=== PATIENT | female | born 1990 | race Caucasian/White ===

== ENCOUNTER 2017-03-05 17:24 | Inpatient (IN) | payer BC ==
[2017-03-05] MEDS ORDERED: Acetaminophen 325 MG Tab PO PRN (18:02)
[2017-03-05] MEDS ORDERED: Lidocaine 1% 30 ML SDV INJECT PRN (18:02)
[2017-03-05] MEDS ORDERED: Ondansetron 4 MG/2 ML SDV IV PRN (18:02)
[2017-03-05] MEDS ORDERED: Lactated Ringers 500 ML IV ONE (18:02)
[2017-03-05] MEDS ORDERED: Carboprost Tromethamine 250 MCG/1 ML Amp IM PRN (18:02)
[2017-03-05] MEDS ORDERED: Sodium Chloride 0.9% 10 ML Syringe FLUSH PRN (18:02)
[2017-03-05] MEDS ORDERED: Methylergonovine 0.2 MG/1 ML Amp IM PRN (18:02)
[2017-03-05] MEDS ORDERED: Misoprostol 400 MCG (4 X 100 MCG TAB) RECTAL PRN (18:02)
[2017-03-05] MEDS: Lactated Ringers 1,000 ML IV SCH ×2 (18:15→19:28)
[2017-03-05] MEDS ORDERED: Oxytocin/Normal Saline 30 UNIT/500 ML BAG IV SCH (18:15)
--- NOTE | 2017-03-05 18:35 | PCM.LDHP ---
L&D History of Present Illness - General Date of Service: 03/06/17 Admit Problem/Dx: Patient Status Order with Admit Dx/Problem 03/05/17 18:02 Patient Status [ADT] Routine Admission Diagnosis/Problem Admission Diagnosis/Problem Normal labor - Related Data Allergies/Adverse Reactions: Allergies Allergy/AdvReac Type Severity Reaction Status Date / Time sulfamethoxazole Allergy Indigestion Verified 05/04/16 00:59 [From Bactrim] trimethoprim [From Bactrim] Allergy Indigestion Verified 05/04/16 00:59 Home Medications: Home Meds Acetaminophen [Tylenol Extra Strength] 1,000 mg PO Q8H PRN #0 tablet 04/01/16 [ Rx] Docusate Sodium [Colace] 100 mg PO BID cap 04/01/16 [Rx] Ferrous Sulfate 325 mg PO BID #60 tablet 04/01/16 [Rx] Vit with Ca/FA/Iron [ Plus Iron] 1 each PO DAILY tablet [Rx] FLUoxetine HCl [Fluoxetine] 1 tab PO DAILY 05/04/16 [History] Past Medical History 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: Psychiatric History: Reports: Anxiety Endocrine/Metabolic History: Reports: Obesity/BMI 30+ - Past Surgical History HEENT Surgical History: Reports: Adenoidectomy, Tonsillectomy Social & Family History - Family History Family Medical History: Noncontributory - Tobacco Use Smoking Status *Q: Never Smoker Second Hand Smoke Exposure: No - Caffeine Use Caffeine Use: Reports: None - Recreational Drug Use Recreational Drug Use: No L&D Exam - Vital Signs Weight: 235 lb Orders Last 24hrs: Active Orders 24 hr Category Date Time Status Patient Status [ADT] Routine ADT 03/05/17 18:02 Active Communication Order [RC] ASDIRECTED Care 03/05/17 18:02 Active Heart Tones [RC] PER UNIT ROUTINE Care 03/05/17 18:02 Active Notify Provider Vital Signs OB [RC] ASDIRECTED Care 03/05/17 18:02 Active Notify Provider [RC] PRN Care 03/05/17 18:02 Active Pump Management, Intrathecal [RC] ASDIRECTED Care 03/05/17 18:02 Active Up ad Soniya [RC] ASDIRECTED Care 03/05/17 18:02 Active Vital Signs [RC] PER UNIT ROUTINE Care 03/05/17 18:02 Active Clear Liquid Diet [DIET] Diet 03/05/17 Dinner Active CBC W/O DIFF,HEMOGRAM [HEME] Routine Lab 03/05/17 18:02 Ordered Acetaminophen [Tylenol] Med 03/05/17 18:02 Active 650 mg PO Q4H PRN Carboprost Tromethamine [Hemabate DS] Med 03/05/17 18:02 Active 250 mcg IM ASDIRECTED PRN Lactated Ringers [Ringers, Lactated] 1,000 ml Med 03/05/17 18:15 Active IV ASDIRECTED Lactated Ringers [Ringers, Lactated] 500 ml Med 03/05/17 18:02 Active IV ONETIME Lidocaine 1% [Xylocaine-MPF 1%] Med 03/05/17 18:02 Active 10 ml INJECT ASDIRECTED PRN Methylergonovine [Methergine] Med 03/05/17 18:02 Active 0.2 mg IM ASDIRECTED PRN Misoprostol [Cytotec] Med 03/05/17 18:02 Active 800 mcg RECTAL ASDIRECTED PRN Ondansetron [Zofran] Med 03/05/17 18:02 Active 4 mg IV Q4H PRN Oxytocin/Normal Saline [Pitocin in NS 30 UNIT/500 ML] Med 03/05/17 18:15 Ordered 30 unit in 500 ml IV TITRATE Sodium Chloride 0.9% [Saline Flush] Med 03/05/17 18:02 Ordered 10 ml FLUSH ASDIRECTED PRN Saline Lock Insert [OM.PC] Routine Oth 03/05/17 18:02 Ordered Resuscitation Status Routine Resus Stat 03/05/17 18:02 Ordered Medication Orders Acetaminophen (Tylenol) 650 mg PO Q4H PRN PRN Reason: Pain (Mild 1-3) and fever Carboprost Tromethamine (Hemabate Ds) 250 mcg IM ASDIRECTED PRN PRN Reason: HEMORRHAGE Lactated Ringer's (Ringers, Lactated) 500 mls @ 500 mls/hr IV ONETIME ONE Stop: 03/05/17 19:01 Lactated Ringer's (Ringers, Lactated) 1,000 mls @ 125 mls/hr IV ASDIRECTED AMBREEN Oxytocin/Sodium Chloride (Pitocin In Ns 30 Unit/500 Ml) 30 unit in 500 mls @ 2 mls/hr IV TITRATE AMBREEN; 2 MUNITS/MIN PRN Reason: Protocol Lidocaine HCl (Xylocaine-Mpf 1%) 10 ml INJECT ASDIRECTED PRN PRN Reason: Perineal Repair Methylergonovine Maleate (Methergine) 0.2 mg IM ASDIRECTED PRN PRN Reason: Hemorrhage Misoprostol (Cytotec) 800 mcg RECTAL ASDIRECTED PRN PRN Reason: Hemorrhage Ondansetron HCl (Zofran) 4 mg IV Q4H PRN PRN Reason: Nausea/Vomiting Sodium Chloride (Saline Flush) 10 ml FLUSH ASDIRECTED PRN PRN Reason: Keep Vein Open
[2017-03-05] MEDS ORDERED: fentaNYL 100 MCG/2 ML SDV ONE (18:46)
--- NOTE | 2017-03-05 18:59 | PCM.SN ---
<Azalea Law - Last Filed: 03/05/17 19:01> - Free Text/Narrative Note: Labor and Delivery Admission H & P Admitting Physician: Dr. Jo Delvalle MD Personal Physician: Dr. Jo Delvalle MD Date: 03/05/2017 Subjective: C/C: contractions HPI: Gildardo Mcniel is a 26 y.o. at 39w6d who presents today with the complaint of regular contractions starting this afternoon. She has her membranes stripped yesterday and has had some bloody discharge since that time. No LOF. Baby is moving well. She denies headache, vision changes, SOB, chest pain, RUQ pain, or GI complaints. Labs: Maternal blood type O pos Antibody screen: negative Hepatitis B negative HIV negative Rubella: Immune RPR non reactive GC/Chlamydia negative GBS negative Glucose 28 weeks: 131 at 1 hr. care: good. complications: none OB History Para Term AB Living 2 1 1 0 0 1 SAB TAB Ectopic Multiple Live Births 0 0 0 0 1 Past Medical History: Diagnosis Date Adult situational stress disorder Treated with Prozac 10 mg for 6 months with good results. BMI 33.0-33.9,adult Ear piercing No tattoos, No IVDU, No transfusions Puberty Menarche age 11-13 Q30d, flow 4-5d Past Surgical History: Procedure Laterality Date SD LAP,CHOLECYSTECTOMY 05/22/2016 TONSILLECTOMY AND ADENOIDECTOMY Age 2-3 WISDOM/ BABY TEETH EXTRACTION Age 22 Allergies Allergen Reactions Bactrim Nausea And Vomiting - Intolerance Sulfamethoxazole Heartburn - Intolerance Trimethoprim Heartburn - Intolerance Social History Social History Marital status: Spouse name: Brian Number of children: 1 Years of education: 16 Occupational History MEDICAL ASSOCIATE [employer] Social History Main Topics Smoking status: Never Smoker Smokeless tobacco: Never Used Alcohol use 0.0 oz/week Comment: occasionally Drug use: No Sexual activity: Yes Partners: Male Social History Narrative Originally from [place], [place]. Lives in [place] in an apartment. 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. October 2012. *09/01/15 moved to [place] in 2013. Lives in a house with her , Brian. No pets. 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 Brian works at [employer]. They are expecting their first child. Brian's family history is overall unremarkable but there are twins on his father's side of the family.-alley worker 07/22/14 Has one son, Gurinder born 03/30/16. Expecting their second child. -alley worker Family History Problem Relation Age of Onset Diabetes Mother Diet controlled. Anxiety Disorder Mother Same stress disorder that Gildardo has. No Known Diseases Father No Known Diseases Brother Diabetes Maternal Aunt Diabetes Maternal Grandmother Heart Disease Paternal Grandfather unkn type Diabetes Paternal Grandfather Other Paternal Grandfather gallbladder disease, cholecystectomy. Uterine Cancer Maternal Aunt and Sarcoma Breast Cancer Maternal Aunt Gene testing was negative for Gildardo's mother Unknown to patient Maternal Grandfather Heart Defect Paternal Grandmother murmur Other Paternal Grandmother gallbladder disease, cholecystectomy. Cancer Paternal Uncle in his 20s from non-Hodgkin's lymphoma Defects Neg Hx Clotting Disorder Neg Hx Bleeding Prob Neg Hx Anesth Problems Neg Hx Cystic Fibrosis Neg Hx Seizures Neg Hx Multiple Births Neg Hx Review of Systems Constitutional: negative for chills and fevers HEENT: negative for vision changes, headache Respiratory: negative for cough and shortness of breath Cardiovascular: negative for chest pain, chest pressure/discomfort, lower extremity swelling, redness, or pain. Gastrointestinal: negative for epigastric pain, abdominal pain, change in bowel habits, nausea and vomiting Genitourinary: negative for dysuria, frequency and hematuria Integument/breast: negative for pruritus and rash Objective: General: alert, oriented, no acute distress vitals: BP: 126/86, P: 93, Temp: 98.4F Lungs: clear to auscultation bilaterally. No wheezing or rales Heart: regular rate and rhythm, no murmur, rub or gallop Abdomen: gravid, non-tender, non distended, bowel sounds present Extremities: no edema, no redness, no indurations FHT: 130 BPM, moderate variability, accelerations present, no decelerations [place]: contractions every 3 to 5 minutes. Presentation: Cephalic Cervix: Dilation: 7 cm Effacement: 90% Station: -1 Assessment: 26 year old female at 39w6d who presents for at 39w6d with active labor, GBS negative status. FHR: Category I Patient Active Problem List Diagnosis BMI 33.0-33.9,adult Adult situational stress disorder Encounter for supervision of normal in third trimester Short interval between pregnancies affecting in third trimester, antepartum Antepartum bleeding, second trimester UTI in , second trimester Heartburn during in third trimester Disorder of SI (sacroiliac) joint Carpal tunnel syndrome during Plan: Admit to L&D for expectant management of active labor in normal term . AROM when able. Anticipate . Desires intrathecal. The patient was staffed with Jo Delvalle MD. AZALEA LAW MD, PGY 3, Pager # [phone] [facility] Family Medicine Residency 03/05/2017 6:27 PM <Jo Hartman - Last Filed: 03/05/17 20:16> - Free Text/Narrative Note: Patient seen and examined. Agree with note as scribed on my behalf by Dr. Law. Patient reported cramping all morning, worse with activity and checked around 230pm and was 5cm and 90%. Shortly after that reports her contractions got stronger. -alley worker 03/05/172015.
--- NOTE | 2017-03-05 19:48 | PCM.PRNOTE ---
- Free Text/Narrative Note: Requested to provide analgesia to full term patient in severe pain. Upon entering the room, patient is lying on back complaining of severe abdominal pain and discomfort. Procedure was discussed with patient including adverse outcomes and expectations. Pt consented to analgesia, SAB/IT. Pt placed into a sitting position. Landmarks for SAB/IT were identified and marked. Back was prepped with betadine x3. A sterile, transparent, fenestrated drape was applied. Excess betadine was removed. Using 3 mL of a 1% lidocaine solution, a skin wheel was placed at the L3/L4 interspace. A 24 ga (4 inch) Pencan spinal needle was inserted until positive for CSF. First attempt was unsuccessful. Second attempt at the L4/L5 interspace was successful. Negative for heme or paresthesias. Injected fentanyl 20 mcg, sufentanil 10 mcg, and 11.25 mg of a 0.75% bupivacaine solution with an epi wash. Pt was placed left lateral position for approximately 20 minutes. There were zero complications or adverse outcomes. Will continue to monitor.
[2017-03-05] MEDS ORDERED: Benzocaine/Menthol 20%-0.5% Spray 56 GM Canister TOP PRN (22:13)
[2017-03-05] MEDS ORDERED: Simethicone 80 MG Tab.Chew PO PRN (22:13)
[2017-03-05] MEDS ORDERED: Famotidine 20 MG Tab PO PRN (22:13)
[2017-03-05] MEDS ORDERED: Hydrocortisone 2.5% Crm 30 GM Tube TOP PRN (22:13)
--- NOTE | 2017-03-05 23:20 | PCM.DEL ---
<Azalea Corral - Last Filed: 03/05/17 23:40> L & D Note - General Info Date of Service: 03/05/17 Mother's Due Date: 03/06/17 - Delivery Note Labor: Augmented by ARM, Augmented by Oxytocin Delivery Outcome: Livebirth Delivery Method: Spontaneous Vaginal Delivery-Single Infant Delivery Mode: Spontaneous Presentation: Left Occiput Anterior (TERRELL) Nuchal Cord: None Prep: Povidone-Iodine (Betadine Anesthesia Type: Intrathecal Amniotic Fluid Description: Meconium Stained Laceration: 2nd Degree, Perineal Suture type: Vicryl Suture size: 3-0 Placenta: Intact, Spontaneous Cord: 3 Vessels Estimated Blood Loss: 250 Resuscitation Needed: Yes : Bulb Syringe, Stimulated, Warmed, Warmer Used Provider: Jo Delvalle Score 1 min: 8 Score 5 min: 9 Second Stage Interventions: Reports: Encouragement Given, Laboring Down Delivery Comments (Free Text/Narrative):: Gildardo Mcneil is a 26 year old female G2 now P2 at 39w 6d who presented with spontaneous onset of labor on 03/05/16 at 1530. Category 1 tracing on admission. She was dilated to 7 cm on admission. She progressed to complete dilation by 2105, with augmentation of pitocin. Artificial rupture of membranes at 8 cm with thin meconium stained fluid. She began pushing at about 5 after laboring down for 45 mins. Delivered a liveborn male from the TERRELL position, after pushing for about 15 mins, over 2nd degree perineal laceration in the midline. Vigorous with cry following stimulation. Placenta delivered spontaneously intact with a 3 vessel cord. IV Pitocin was started shortly after delivery of placenta. EBL 250 mL. 2nd degree perineal laceration repaired with 3-0 Vicryl suture. Hemostasis confirmed. Mother and doing well. - Patient Data Vitals - Most Recent: Last Vital Signs Temp 98.4 F 03/05/17 17:31 Pulse 81 03/05/17 19:00 Resp 16 03/05/17 19:00 BP 114/65 03/05/17 19:00 Pulse Ox 97 03/05/17 19:00 Weight - Most Recent: 106.594 kg Lab Results Last 24 Hours: Laboratory Results - last 24 hr 03/05/17 Range/Units 06:15 WBC 19.4 H (5.0-10.0) 10^3/uL RBC 4.11 L (4.2-5.4) 10^6/uL Hgb 12.0 D (12.0-16.0) g/dL Hct 36.4 L (37.0-47.0) % MCV 88.6 D (80-100) fL MCH 29.2 (27.0-34.0) pg MCHC 33.0 (33.0-35.0) g/dL Plt Count 238 D (150-450) 10^3/uL Med Orders - Current: Current Medications Acetaminophen (Tylenol) 650 mg PO Q4H PRN PRN Reason: Pain (Mild 1-3) and fever Benzocaine/Menthol (Dermoplast Pain Relief [place]) 0 gm TOP Q4H PRN PRN Reason: Perineal comfort measures Carboprost Tromethamine (Hemabate Ds) 250 mcg IM ASDIRECTED PRN PRN Reason: HEMORRHAGE Docusate Sodium (Colace) 100 mg PO BID PRN PRN Reason: Constipation Famotidine (Pepcid) 20 mg PO BID PRN PRN Reason: Heartburn Hydrocortisone (Hydrocortisone 2.5% Crm) 0 gm TOP Q4H PRN PRN Reason: Hemorrhoids Lactated Ringer's (Ringers, Lactated) 1,000 mls @ 125 mls/hr IV ASDIRECTED AMBREEN Last Admin: 03/05/17 19:28 Dose: 125 mls/hr Oxytocin/Sodium Chloride (Pitocin In Ns 30 Unit/500 Ml) 30 unit in 500 mls @ 2 mls/hr IV TITRATE AMBREEN; 2 MUNITS/MIN PRN Reason: Protocol Last Admin: 03/05/17 20:10 Dose: 2 munits/min, 2 mls/hr Ibuprofen (Motrin) 800 mg PO Q8H PRN PRN Reason: Mild Pain or Fever Lidocaine HCl (Xylocaine-Mpf 1%) 10 ml INJECT ASDIRECTED PRN PRN Reason: Perineal Repair Methylergonovine Maleate (Methergine) 0.2 mg IM ASDIRECTED PRN PRN Reason: Hemorrhage Misoprostol (Cytotec) 800 mcg RECTAL ASDIRECTED PRN PRN Reason: Hemorrhage Ondansetron HCl (Zofran) 4 mg IV Q4H PRN PRN Reason: Nausea/Vomiting Last Admin: 03/05/17 18:34 Dose: 4 mg Prenat Multivit/[place]/Iron/Folic Ac ( Plus Iron) 1 each PO DAILY AMBREEN Simethicone (Simethicone) 80 mg PO Q4H PRN PRN Reason: Gas Sodium Chloride (Saline Flush) 10 ml FLUSH ASDIRECTED PRN PRN Reason: Keep Vein Open Discontinued Medications Fentanyl (Sublimaze) Confirm Administered Dose 100 mcg .ROUTE .STK-MED ONE Stop: 03/05/17 18:47 Lactated Ringer's (Ringers, Lactated) 500 mls @ 500 mls/hr IV ONETIME ONE Stop: 03/05/17 19:01 Last Admin: 03/05/17 18:49 Dose: 500 mls/hr Sufentanil Citrate (Sufenta) Confirm Administered Dose 50 mcg .ROUTE .STK-MED ONE Stop: 03/05/17 18:48 - Problem List & Annotations (1) (normal spontaneous vaginal delivery) SNOMED Code(s): 89398967 Code(s): O80 - ENCOUNTER FOR FULL-TERM UNCOMPLICATED DELIVERY Status: Acute Priority: High Current Visit: Yes Onset Date: ~03/05/17 - Problem List Review Problem List Initiated/Reviewed/Updated: Yes - My Orders Last 24 Hours: Up ad Soniya [RC] ASDIRECTED Acetaminophen [Tylenol] 650 mg PO Q4H PRN Ondansetron [Zofran] 4 mg IV Q4H PRN Sodium Chloride 0.9% [Saline Flush] 10 ml FLUSH ASDIRECTED PRN Saline Lock Insert [OM.PC] Routine Notify Provider Vital Signs OB [RC] ASDIRECTED Vital Signs [RC] PFP Consult to Die Equipment Operator [CONS] Routine Benzocaine/Menthol [Dermoplast Pain Relief [place]] See Dose Instructions TOP Q4H PRN Docusate Sodium [Colace] 100 mg PO BID PRN Famotidine [Pepcid] 20 mg PO BID PRN Hydrocortisone [Hydrocortisone 2.5% Crm] See Dose Instructions TOP Q4H PRN Ibuprofen [Motrin] 800 mg PO Q8H PRN Simethicone 80 mg PO Q4H PRN Assess Lochia [WOMSER] Per Unit Routine Assess Uterine Involution [WOMSER] Per Unit Routine Breast Pump [WOMSER] Per Unit Routine Ice Therapy [OM.PC] Per Unit Routine Perineal Care [OM.PC] Per Unit Routine Sitz Bath [OM.PC] Per Unit Routine Vit with Ca/FA/Iron [ Plus Iron] 1 each PO DAILY Regular Diet [DIET] - Assessment Assessment:: (normal spontaneous vaginal delivery) Normal term (delivered) Second trimester bleeding in current Heartburn during in 3rd trimester Short interval between pregnancies Adult situational stress disorder - Plan Plan:: Routine cares including pain management and monitoring for excess uterine bleeding or infections. vitamin for breast feeding status Prozac for stress disorder PRN Pepcid for heartburn <Jo Hartman - Last Filed: 03/06/17 11:17> - Patient Data Vitals - Most Recent: Last Vital Signs Temp 98.2 F 03/06/17 08:00 Pulse 110 H 03/06/17 08:00 Resp 16 03/06/17 08:00 BP 120/64 03/06/17 08:00 Pulse Ox 98 03/06/17 08:00 Lab Results Last 24 Hours: Laboratory Results - last 24 hr 03/05/17 Range/Units 06:15 WBC 19.4 H (5.0-10.0) 10^3/uL RBC 4.11 L (4.2-5.4) 10^6/uL Hgb 12.0 D (12.0-16.0) g/dL Hct 36.4 L (37.0-47.0) % MCV 88.6 D (80-100) fL MCH 29.2 (27.0-34.0) pg MCHC 33.0 (33.0-35.0) g/dL Plt Count 238 D (150-450) 10^3/uL Med Orders - Current: Current Medications Acetaminophen (Tylenol) 650 mg PO Q4H PRN PRN Reason: Pain (Mild 1-3) and fever Benzocaine/Menthol (Dermoplast Pain Relief [place]) 0 gm TOP Q4H PRN PRN Reason: Perineal comfort measures Last Admin: 03/06/17 05:09 Dose: 1 gram Docusate Sodium (Colace) 100 mg PO BID PRN PRN Reason: Constipation Last Admin: 03/06/17 08:47 Dose: 100 mg Famotidine (Pepcid) 20 mg PO BID PRN PRN Reason: Heartburn Hydrocortisone (Hydrocortisone 2.5% Crm) 0 gm TOP Q4H PRN PRN Reason: Hemorrhoids Oxytocin/Sodium Chloride (Pitocin In Ns 30 Unit/500 Ml) 30 unit in 500 mls @ 2 mls/hr IV TITRATE AMBREEN; 2 MUNITS/MIN PRN Reason: Protocol Last Titration: 03/06/17 00:30 Dose: Infused Ibuprofen (Motrin) 800 mg PO Q8H PRN PRN Reason: Mild Pain or Fever Last Admin: 03/06/17 05:08 Dose: 800 mg Ondansetron HCl (Zofran) 4 mg IV Q4H PRN PRN Reason: Nausea/Vomiting Last Admin: 03/05/17 18:34 Dose: 4 mg Prenat Multivit/[place]/Iron/Folic Ac ( Plus Iron) 1 each PO DAILY AMBREEN Last Admin: 03/06/17 08:47 Dose: 1 each Simethicone (Simethicone) 80 mg PO Q4H PRN PRN Reason: Gas Sodium Chloride (Saline Flush) 10 ml FLUSH ASDIRECTED PRN PRN Reason: Keep Vein Open Discontinued Medications Carboprost Tromethamine (Hemabate Ds) 250 mcg IM ASDIRECTED PRN PRN Reason: HEMORRHAGE Fentanyl (Sublimaze) Confirm Administered Dose 100 mcg .ROUTE .STK-MED ONE Stop: 03/05/17 18:47 Last Admin: 03/06/17 00:36 Dose: Not Given Lactated Ringer's (Ringers, Lactated) 500 mls @ 500 mls/hr IV ONETIME ONE Stop: 03/05/17 19:01 Last Admin: 03/05/17 18:49 Dose: 500 mls/hr Lactated Ringer's (Ringers, Lactated) 1,000 mls @ 125 mls/hr IV ASDIRECTED AMBREEN Last Admin: 03/05/17 19:28 Dose: 125 mls/hr Lidocaine HCl (Xylocaine-Mpf 1%) 10 ml INJECT ASDIRECTED PRN PRN Reason: Perineal Repair Methylergonovine Maleate (Methergine) 0.2 mg IM ASDIRECTED PRN PRN Reason: Hemorrhage Misoprostol (Cytotec) 800 mcg RECTAL ASDIRECTED PRN PRN Reason: Hemorrhage Sufentanil Citrate (Sufenta) Confirm Administered Dose 50 mcg .ROUTE .STK-MED ONE Stop: 03/05/17 18:48 Last Admin: 03/06/17 00:37 Dose: Not Given - Plan Plan:: Procedure performed under my direct supervision. Agree with note as described on my behalf by Dr. Corral. -[facility] 03/06/17 1117.
[2017-03-06] MEDS: Ibuprofen 800 MG Tab PO PRN ×2 (05:08→20:38)
--- NOTE | 2017-03-06 08:10 | PCM.SN ---
<Azalea Law - Last Filed: 03/06/17 08:01> - Free Text/Narrative Note: Obstetrics Progress Note Post Day Number 1 Patient: Gildardo Mcneil Admit Date: 03/05/17 Today's Date: 03/06/17 Subjective: Gildardo is ambulating, voiding, tolerating regular diet all without difficulty. She reports her lochia is mild in degree . She is . She is up and ambulating well, tolerating PO intake and using the bathroom, good bowel sounds and passing gas, no bowel movement at this time. She has no complaints. Objective: Vitals reviewed Blood pressure 127/76, pulse 94, weight (!) 234 lb (106.1 kg). General: healthy, alert, no distress, cooperative, smiling Lungs: clear to auscultation bilaterally Heart: regular rate and rhythm, S1, S2 normal, no murmur, click, rub or gallop Abdomen: soft, non-tender; bowel sounds normal; no masses, no organomegaly Uterus is Firm, nontender at 1 cm above the umbilicus. Lower extremities are nontender and have pitting edema. Skin: is warm and dry, well perfused no visible lesions Lab Results: Hgb 12 Platelets 238 RPR: non reactive Rubella: Immune GBS: negative Hbs: negative Assessment/Plan: Patient is stable and comfortable, no acute distress. She is day number one status post normal spontaneous vaginal delivery. No signs of anemia as her last Hb was 12 and she is completely asymptomatic. Plan will be to encourage ambulation. Advance diet as tolerated. Saline lock IV with good oral intake. Continue with advancing routine post cares. Plan for discharge tomorrow. AZALEA LAW MD, PGY 3, Pager # [phone] [facility] Family Medicine Residency <Jo Hartman - Last Filed: 03/06/17 11:18> - Free Text/Narrative Note: Patient seen and examined with Dr. Law. Agree with her note as described on my behalf. -[facility] 03/06/17 6551
[2017-03-06] MEDS: Prenatal Multivitamin with Calcium/Folic Acid/Iron Tab PO SCH (08:47)
[2017-03-06] MEDS: Docusate Sodium 100 MG Cap PO PRN ×2 (08:47→20:39)
--- NOTE | 2017-03-07 07:50 | PCM.SN ---
<Azalea Law - Last Filed: 03/07/17 07:46> - Free Text/Narrative Note: Obstetrics Progress Note Post Day Number 2 Patient: Gildardo Mcneil Admit Date: 03/05/17 Today's Date: 03/07/2017 Subjective: Gildardo Mcneil 26 y.o. now who is day number two status post normal spontaneous vaginal delivery. She is ambulating, voiding, tolerating regular diet all without difficulty. She reports her lochia is minimal in degree . Baby is doing well, mother is . She has no complaints. Objective: Vitals: BP: 119/80, P 63, RR 16 General: healthy, alert, no distress, cooperative, smiling Lungs: clear to auscultation bilaterally Heart: regular rate and rhythm, S1, S2 normal, no murmur, click, rub or gallop Abdomen: soft, non-tender; bowel sounds normal; Uterus is Firm, nontender at 2 cm below the umbilicus. Lower extremities are nontender and have pitting edema. Skin: is warm and dry, well perfused no visible lesions Lab Results: RPR: non reactive Rubella: Immune GBS: negative Hbs: negative Assessment/Plan: Patient is stable and comfortable doing well. No acute distress. 26 y.o. now who is day number two status post normal spontaneous vaginal delivery. Probable discharge later today, discharge instructions will be reviewed by nursing staff. She should have a checkup which will be scheduled for six weeks to eight weeks from now. AZALEA LAW MD, PGY 3, Pager # [phone] [facility] Family Medicine Residency <Jo Hartman - Last Filed: 03/07/17 11:00> - Free Text/Narrative Note: Patient seen and examined. Agree with Dr. Law's noted as scribed on my behalf. -fast food attendant 03/07/17 1100.
--- NOTE | 2017-03-07 08:37 | PCM.DCSUM1 ---
<Azalea Corral - Last Filed: 03/07/17 08:37> Discharge Summary - Hospital Course Free Text/Narrative:: Gildardo Mcneil is a 26 year old female now at 39w 6d who presented with spontaneous onset of labor on 03/05/16 at 1530. Category 1 tracing on admission. She was dilated to 7 cm on admission. She progressed to complete dilation by 2106 (~6hrs labor), with augmentation of pitocin. Artificial rupture of membranes at 8 cm with thin meconium stained fluid. She began pushing at about 2115 after laboring down for 45 mins. Delivered a liveborn male from the TERRELL position, after pushing for about 15 mins, over 2nd degree perineal laceration in the midline. Vigorous infant with cry following stimulation. Placenta delivered spontaneously intact with a 3 vessel cord. IV Pitocin was started shortly after delivery of placenta. EBL 250 mL. 2nd degree perineal laceration repaired with 3-0 Vicryl suture. Hemostasis confirmed. Mother and doing well. - Discharge Data Discharge Date: 03/07/17 Discharge Disposition: Home, Self-Care 01 Condition: Good - Discharge Diagnosis/Problem(s) (1) (normal spontaneous vaginal delivery) SNOMED Code(s): 32357316 ICD Code: O80 - ENCOUNTER FOR FULL-TERM UNCOMPLICATED DELIVERY Status: Acute Priority: High Current Visit: Yes Onset Date: ~03/05/17 - Patient Summary/Data Consults: Consultations 03/05/17 22:13 Consult to Airframe Technical Officer [CONS] Routine - Patient Instructions Diet: Regular Diet as Tolerated Activity: No Lifting Over 25 Pounds, No Strenuous Activities (pelvic rest for 6 weeks) Driving: May Drive Today Showering/Bathing: May Shower Notify Provider of: Fever, Increased Pain, Swelling and Redness, Drainage, Nausea and/or Vomiting Other/Special Instructions: routine post vaginal delivery for mother. wear DOMITILA hoses daily for lower extremity edema - Discharge Plan Home Medications: Home Meds Acetaminophen [Tylenol Extra Strength] 1,000 mg PO Q8H PRN #0 tablet 04/01/16 [ Rx] Docusate Sodium [Colace] 100 mg PO BID cap 04/01/16 [Rx] Ferrous Sulfate 325 mg PO BID #60 tablet 04/01/16 [Rx] Vit with Ca/FA/Iron [ Plus Iron] 1 each PO DAILY tablet [Rx] FLUoxetine HCl [Fluoxetine] 1 tab PO DAILY 05/04/16 [History] Patient Handouts: Vaginal Delivery, Care of a Perineal Tear Referrals: Jo Hartman MD [Primary Care Provider] - (Please schedule your own 6 week appointment. ) - Patient Data Vitals - Most Recent: Last Vital Signs Temp 97.8 F 03/06/17 20:00 Pulse 63 03/06/17 20:00 Resp 16 03/06/17 20:00 BP 119/80 03/06/17 20:00 Pulse Ox 98 03/06/17 08:00 Weight - Most Recent: 106.594 kg Med Orders - Current: Current Medications Acetaminophen (Tylenol) 650 mg PO Q4H PRN PRN Reason: Pain (Mild 1-3) and fever Benzocaine/Menthol (Dermoplast Pain Relief [place]) 0 gm TOP Q4H PRN PRN Reason: Perineal comfort measures Last Admin: 03/06/17 05:09 Dose: 1 gram Docusate Sodium (Colace) 100 mg PO BID PRN PRN Reason: Constipation Last Admin: 03/06/17 20:39 Dose: 100 mg Famotidine (Pepcid) 20 mg PO BID PRN PRN Reason: Heartburn Hydrocortisone (Hydrocortisone 2.5% Crm) 0 gm TOP Q4H PRN PRN Reason: Hemorrhoids Oxytocin/Sodium Chloride (Pitocin In Ns 30 Unit/500 Ml) 30 unit in 500 mls @ 2 mls/hr IV TITRATE AMBREEN; 2 MUNITS/MIN PRN Reason: Protocol Last Titration: 03/06/17 00:30 Dose: Infused Ibuprofen (Motrin) 800 mg PO Q8H PRN PRN Reason: Mild Pain or Fever Last Admin: 03/06/17 20:38 Dose: 800 mg Ondansetron HCl (Zofran) 4 mg IV Q4H PRN PRN Reason: Nausea/Vomiting Last Admin: 03/05/17 18:34 Dose: 4 mg Prenat Multivit/[place]/Iron/Folic Ac ( Plus Iron) 1 each PO DAILY AMBREEN Last Admin: 03/06/17 08:47 Dose: 1 each Simethicone (Simethicone) 80 mg PO Q4H PRN PRN Reason: Gas Sodium Chloride (Saline Flush) 10 ml FLUSH ASDIRECTED PRN PRN Reason: Keep Vein Open Discontinued Medications Carboprost Tromethamine (Hemabate Ds) 250 mcg IM ASDIRECTED PRN PRN Reason: HEMORRHAGE Fentanyl (Sublimaze) Confirm Administered Dose 100 mcg .ROUTE .STK-MED ONE Stop: 03/05/17 18:47 Last Admin: 03/06/17 00:36 Dose: Not Given Lactated Ringer's (Ringers, Lactated) 500 mls @ 500 mls/hr IV ONETIME ONE Stop: 03/05/17 19:01 Last Admin: 03/05/17 18:49 Dose: 500 mls/hr Lactated Ringer's (Ringers, Lactated) 1,000 mls @ 125 mls/hr IV ASDIRECTED AMBREEN Last Admin: 03/05/17 19:28 Dose: 125 mls/hr Lidocaine HCl (Xylocaine-Mpf 1%) 10 ml INJECT ASDIRECTED PRN PRN Reason: Perineal Repair Methylergonovine Maleate (Methergine) 0.2 mg IM ASDIRECTED PRN PRN Reason: Hemorrhage Misoprostol (Cytotec) 800 mcg RECTAL ASDIRECTED PRN PRN Reason: Hemorrhage Sufentanil Citrate (Sufenta) Confirm Administered Dose 50 mcg .ROUTE .STK-MED ONE Stop: 03/05/17 18:48 Last Admin: 03/06/17 00:37 Dose: Not Given *Q Meaningful Use (DIS) - VTE *Q VTE Criteria *Q: - Stroke *Q Stroke Criteria *Q: - AMI *Q AMI Criteria *Q: <Jo Hartman - Last Filed: 03/07/17 11:01> Discharge Summary - Patient Summary/Data Consults: Consultations 03/05/17 22:13 Consult to Airframe Technical Officer [CONS] Routine - Discharge Summary/Plan Comment DC Time >30 min.: No Discharge Summary/Plan Comment: Patient seen and examined. Agree with Dr. Corral's noted as scribed on my behalf. -checker loader 03/07/17 1101. - Patient Data Vitals - Most Recent: Last Vital Signs Temp 97.9 F 03/07/17 08:00 Pulse 70 03/07/17 08:00 Resp 16 03/07/17 08:00 BP 121/75 03/07/17 08:00 Pulse Ox 99 03/07/17 08:00 Med Orders - Current: Current Medications Acetaminophen (Tylenol) 650 mg PO Q4H PRN PRN Reason: Pain (Mild 1-3) and fever Benzocaine/Menthol (Dermoplast Pain Relief [place]) 0 gm TOP Q4H PRN PRN Reason: Perineal comfort measures Last Admin: 03/06/17 05:09 Dose: 1 gram Docusate Sodium (Colace) 100 mg PO BID PRN PRN Reason: Constipation Last Admin: 03/07/17 08:55 Dose: 100 mg Famotidine (Pepcid) 20 mg PO BID PRN PRN Reason: Heartburn Hydrocortisone (Hydrocortisone 2.5% Crm) 0 gm TOP Q4H PRN PRN Reason: Hemorrhoids Oxytocin/Sodium Chloride (Pitocin In Ns 30 Unit/500 Ml) 30 unit in 500 mls @ 2 mls/hr IV TITRATE AMBREEN; 2 MUNITS/MIN PRN Reason: Protocol Last Titration: 03/06/17 00:30 Dose: Infused Ibuprofen (Motrin) 800 mg PO Q8H PRN PRN Reason: Mild Pain or Fever Last Admin: 03/07/17 08:55 Dose: 800 mg Ondansetron HCl (Zofran) 4 mg IV Q4H PRN PRN Reason: Nausea/Vomiting Last Admin: 03/05/17 18:34 Dose: 4 mg Prenat Multivit/[place]/Iron/Folic Ac ( Plus Iron) 1 each PO DAILY AMBREEN Last Admin: 03/07/17 08:55 Dose: 1 each Simethicone (Simethicone) 80 mg PO Q4H PRN PRN Reason: Gas Sodium Chloride (Saline Flush) 10 ml FLUSH ASDIRECTED PRN PRN Reason: Keep Vein Open Discontinued Medications Carboprost Tromethamine (Hemabate Ds) 250 mcg IM ASDIRECTED PRN PRN Reason: HEMORRHAGE Fentanyl (Sublimaze) Confirm Administered Dose 100 mcg .ROUTE .STK-MED ONE Stop: 03/05/17 18:47 Last Admin: 03/06/17 00:36 Dose: Not Given Lactated Ringer's (Ringers, Lactated) 500 mls @ 500 mls/hr IV ONETIME ONE Stop: 03/05/17 19:01 Last Admin: 03/05/17 18:49 Dose: 500 mls/hr Lactated Ringer's (Ringers, Lactated) 1,000 mls @ 125 mls/hr IV ASDIRECTED AMBREEN Last Admin: 03/05/17 19:28 Dose: 125 mls/hr Lidocaine HCl (Xylocaine-Mpf 1%) 10 ml INJECT ASDIRECTED PRN PRN Reason: Perineal Repair Methylergonovine Maleate (Methergine) 0.2 mg IM ASDIRECTED PRN PRN Reason: Hemorrhage Misoprostol (Cytotec) 800 mcg RECTAL ASDIRECTED PRN PRN Reason: Hemorrhage Sufentanil Citrate (Sufenta) Confirm Administered Dose 50 mcg .ROUTE .Flooved-[facility] ONE Stop: 03/05/17 18:48 Last Admin: 03/06/17 00:37 Dose: Not Given *Q Meaningful Use (DIS) - VTE *Q VTE Criteria *Q: - Stroke *Q Stroke Criteria *Q: - AMI *Q AMI Criteria *Q:
[2017-03-07] MEDS: Docusate Sodium 100 MG Cap PO PRN (08:55)
[2017-03-07] MEDS: Ibuprofen 800 MG Tab PO PRN (08:55)
[2017-03-07] MEDS: Prenatal Multivitamin with Calcium/Folic Acid/Iron Tab PO SCH (08:55)
[2017-03-07 09:01] VITALS: BP 121/75
[2017-03-07] MEDS ORDERED: fentaNYL 100 MCG/2 ML SDV ITHECAL ONE (13:40)
== END 2017-03-07 13:41 | disposition home or self-care (01) | DRG 560 ==
LOC: DL.OBCHECK 17:24 → DL.OB 17:56 → OBSVTOIN 21:30 → DL.OB 21:30
PROVIDERS: ADMIT Family Medicine; ATTEND Family Medicine
PROC: 10E0XZZ Delivery of Products of Conception, External Approach (ICD-10-PCS; principal; 2017-03-05)
PROC: 0KQM0ZZ Repair Perineum Muscle, Open Approach (ICD-10-PCS; 2017-03-05)
PROC: 10907ZC Drainage of Amniotic Fluid, Therapeutic from Products of Conception, Via Natural or Artificial Opening (ICD-10-PCS; 2017-03-05)
PROC: 00HU33Z Insertion of Infusion Device into Spinal Canal, Percutaneous Approach (ICD-10-PCS; 2017-03-05)
PROC: 3E0R3BZ Introduction of Anesthetic Agent into Spinal Canal, Percutaneous Approach (ICD-10-PCS; 2017-03-05)
DX: O77.0 Labor and delivery complicated by meconium in amniotic fluid (principal); O70.1 Second degree perineal laceration during delivery; Z3A.39 39 weeks gestation of pregnancy; Z37.0 Single live birth
CPT/HCPCS: 36415; 59300; 59409; 85027; A9270-GY; J2405; J2590; J3010; J7120

== ENCOUNTER 2023-09-08 13:49 | Inpatient (IN) | payer BC ==
[2023-09-08] MEDS ORDERED: Misoprostol 400 MCG (4 X 100 MCG TAB) RECTAL PRN ×2 (14:28→23:49)
[2023-09-08] MEDS ORDERED: Tranexamic Acid 1,000 MG in Sodium Chloride 0.9% 100 ML IV PRN ×2 (14:28→23:49)
[2023-09-08] MEDS ORDERED: Carboprost Tromethamine 250 MCG/1 ML Amp IM PRN ×2 (14:28→23:49)
[2023-09-08] MEDS ORDERED: Ondansetron 4 MG/2 ML SDV IVPUSH PRN (14:28)
[2023-09-08] MEDS ORDERED: Acetaminophen 325 MG Tab PO PRN (14:28)
[2023-09-08] MEDS ORDERED: Sodium Chloride 0.9% 10 ML Syringe FLUSH PRN ×2 (14:28→23:49)
[2023-09-08] MEDS ORDERED: Methylergonovine 0.2 MG/1 ML Amp IM PRN (14:28)
[2023-09-08 14:50] LABS: HEMOGLOBIN 12.1 g/dL (12.0-16.0); MEAN CORPUSCULAR HEMOGLOBIN 29.6 pg (27.0-34.0); MEAN CORPUSCULAR HGB CONC 33.6 g/dL (33.0-35.0); RED BLOOD CELL COUNT 4.09 10^6/uL (4.2-5.4); WHITE BLOOD CELL COUNT,WBC 15.8 10^3/uL (5.0-10.0)
[2023-09-08] MEDS: Oxytocin/Normal Saline 30 UNIT/500 ML BAG IV SCH (15:55)
[2023-09-08] MEDS: Lactated Ringers 1,000 ML IV SCH (15:57)
[2023-09-08] MEDS ORDERED: Bupivacaine 0.25% 10 ML SDV ONE (19:30)
[2023-09-08] MEDS ORDERED: fentaNYL 100 MCG/2 ML SDV ONE (19:30)
[2023-09-08] MEDS ORDERED: ePHEDrine 50 MG/ML SDV IVPUSH PRN (19:51)
[2023-09-08] MEDS ORDERED: Phenylephrine HCl In 0.9% NaCl 1 MG/10 ML Syringe IVPUSH PRN (19:51)
[2023-09-08] MEDS ORDERED: Ropivacaine 200 MG in Premix Bag 1 BAG EPIDUR SCH (20:00)
[2023-09-08] MEDS: Lactated Ringers 1,000 ML IV ONE (21:59)
[2023-09-08] MEDS ORDERED: Simethicone 80 MG Tab.Chew PO PRN (23:49)
[2023-09-08] MEDS ORDERED: Famotidine 20 MG Tab PO PRN (23:49)
[2023-09-09] MEDS: Lidocaine 1% 30 ML SDV INJECT ONE (02:21)
[2023-09-09] MEDS: Ibuprofen 800 MG Tab PO PRN (02:30)
[2023-09-09] MEDS: Benzocaine/Menthol 20%-0.5% Spray 78 GM Cannister TOP PRN (02:30)
[2023-09-09] MEDS: Prenatal Multivitamin with Calcium/Folic Acid/Iron Tab PO SCH (09:00)
[2023-09-09] MEDS: Docusate Sodium 100 MG Cap PO PRN (09:00)
[2023-09-09] MEDS: Acetaminophen 325 MG Tab PO PRN (09:00)
[2023-09-09] MEDS: Ferrous Sulfate 325 MG Tab PO SCH (09:00)
[2023-09-10 10:37] VITALS: BP 137/86; PULSE 79
== END 2023-09-10 10:50 | disposition home or self-care (01) | DRG 560 ==
LOC: DL.OB 13:49 → OBSVTOIN 23:11
PROVIDERS: ADMIT Family Medicine; ATTEND Family Medicine
PROC: 10E0XZZ Delivery of Products of Conception, External Approach (ICD-10-PCS; principal; 2023-09-08)
PROC: 0HQ9XZZ Repair Perineum Skin, External Approach (ICD-10-PCS; 2023-09-08)
PROC: 3E0R3BZ Introduction of Anesthetic Agent into Spinal Canal, Percutaneous Approach (ICD-10-PCS; 2023-09-08)
PROC: 00HU33Z Insertion of Infusion Device into Spinal Canal, Percutaneous Approach (ICD-10-PCS; 2023-09-08)
DX: O42.02 Full-term premature rupture of membranes, onset of labor within 24 hours of rupture (principal); Z37.0 Single live birth; O99.214 Obesity complicating childbirth; O99.344 Other mental disorders complicating childbirth; F41.9 Anxiety disorder, unspecified; O99.02 Anemia complicating childbirth; O24.420 Gestational diabetes mellitus in childbirth, diet controlled; O70.0 First degree perineal laceration during delivery; Z3A.38 38 weeks gestation of pregnancy; Z88.2 Allergy status to sulfonamides; Z88.1 Allergy status to other antibiotic agents; Z88.8 Allergy status to other drugs, medicaments and biological substances
CPT/HCPCS: 36415; 51702; 59409; 85027; A9270-GY; J2590; J7120